=== PATIENT | male | born 1970 | race Caucasian/White ===

== ENCOUNTER 2021-11-10 12:00 | Emergency (ER) | payer SELFPAY ==
[2021-11-10 12:09] VITALS: BP 119/79; PULSE 81; RESP 16; TEMP 37.2; O2SAT 98
--- NOTE | 2021-11-10 12:14 | ED.EXTPRO ---
HPI - Extremity Problem General Chief complaint: Extremity Problem,Nontraumatic Stated complaint: R knee pain Time Seen by Provider: 11/10/21 12:18 Source: patient and RN notes reviewed Mode of arrival: ambulatory Limitations: no limitations History of Present Illness HPI Narrative: 51-year-old male with history of gout presents with concern for right knee pain. He denies injury or trauma. Reports he is taken allopurinol without relief. He denies fever, bodies, chills, sweats. He reports pain, redness, mild swelling. Reports he usually gets gout in this area. MD Complaint: extremity pain Related Data Home Medications Medication Instructions Recorded Confirmed allopurinol 11/10/21 sertraline 100 mg tablet mg 11/10/21 Allergies Allergy/AdvReac Type Severity Reaction Status Date / Time No Known Allergies Allergy Verified 11/10/21 12:04 Review of Systems Review of Systems: CONSTITUTIONAL: Denies malaise, chills, sweats, or fever. SKIN: Denies rash or itching, open skin, laceration, abrasion, MUSCULOSKELETAL: Reports right knee pain, redness, warmth, swelling. NEUROLOGIC: Denies numbness, weakness All systems reviewed & are unremarkable except as noted in HPI and below PMFSH Comments At time of signature, agree with nursing past medical, surgical, social and family history. There is no relevant family history pertinent to the presenting complaint Exam Narrative: GENERAL: Well-appearing, well-nourished, and in no acute distress. HEAD: Normocephalic, atraumatic. EYES: PERRLA, conjunctivae clear NECK: Supple. CHEST: Speaks in full sentences. No respiratory distress. HEART: Regular rate and rhythm. Normal and equal peripheral pulses. EXTREMITIES: [Xxx] has normal strength and sensation, normal range of motion. No edema or ecchymosis. 5/5 strength with [xxx] flexion and extension. Normal sensation with sensitivity to light touch and pain. No point tenderness. No open wounds, no skin tenting, no devitalized tissue or atrophy, no trophic changes, no obvious deformity, alignment normal, nearby joints and structures intact. Distal pulses palpable and equal bilaterally, skin warm, dry, pink. Capillary refill less than 3 seconds. SKIN: Warm, dry, no rash. NEURO: Alert and oriented x3. PSYCH: Normal mood and affect Course Course Emergency Course: Patient is aware of diagnosis, understands and agrees to treatment plan. Anticipatory guidance given. Patient agrees to follow-up as directed and is aware of reasons to seek care at the emergency department. Portions of this record may have been created with voice recognition software Level of Care: Express Care Visit Vital Signs Vital signs: Vital Signs Temperature 99 F 11/10/21 12:09 Pulse Rate 81 11/10/21 12:09 Respiratory Rate 16 11/10/21 12:09 Blood Pressure 119/79 11/10/21 12:09 Pulse Oximetry 98 11/10/21 12:09 Temperature 99 F 11/10/21 12:09 Pulse Rate 81 11/10/21 12:09 Respiratory Rate 16 11/10/21 12:09 Blood Pressure 119/79 11/10/21 12:09 Pulse Oximetry 98 11/10/21 12:09 Reviewed. MDM - Extremity (Nontraumatic) MDM Narrative Medical decision making narrative: Exam findings show no acute concerns or changes; patient is non-toxic appearing and is in no distress. Patient is appropriate for outpatient treatment and follow-up. Differential Diagnosis Differential diagnosis: Likely gout, cellulitis, lower extremity edema, deep vein thrombosis of lower extremity and other (Osteoarthritis, sprain) Critical Care Time Critical Care Time Critical Care Time: No Discharge Plan Discharge Clinical Impression: Gout Patient Disposition: Home, Self-Care Condition: Stable Instructions: Gout (ED) Additional Instructions: 1) Please follow-up with your primary care doctor if you have any new symptoms or concerns. 2) If you have any worsening of symptoms or any other urgent concerns please go to the ER. 3) Please take medica
== END 2021-11-10 12:41 | disposition home or self-care (01) ==
PROVIDERS: Emergency Provider Nurse Practitioner
DX: M10.9 Gout, unspecified (principal)
CPT/HCPCS: 99213; G0463